=== PATIENT | female | born 1950 | race Caucasian/White ===

== ENCOUNTER 2016-11-03 19:45 | Emergency (ER) | payer OTHER ==
[~2016-11-03 19:45] MED LIST: ASAB PO; AUG875 PO; CIP5 PO; CRESTOR20 MG PO; DIOV80 PO; FLAG500TAB PO; HUMULIN R1 ML SC; L20 PO; L40 PO; LANTUS SC; NEUR100 PO; NEUR300 PO; NOVOLOG SC; PCET PO; POTASSIUM OTC PO; PRILO PO; PRILOSEC40 MG PO; PROTONIX PO; VENTOLIN HFA PO; VICTOZA18 MG/3 ML SC; Z100 PO; ZYRTEC ALLGY10 MG PO
[2017-03-04] MEDS ORDERED: MICROZIDE PO (19:35)
[2017-03-04] MEDS ORDERED: CRESTOR20 MG PO (19:35)
[2017-03-04] MEDS ORDERED: KDUR20 PO (19:35)
[2017-03-04] MEDS ORDERED: REQUIP5 PO (19:35)
[2017-03-04] MEDS ORDERED: NEUR300 PO ×2 (19:36)
[2017-03-04] MEDS ORDERED: ZYRTEC ALLGY10 MG PO (19:36)
[2017-03-04] MEDS ORDERED: VITAMIN D400 UNI1 PO (19:37)
[2017-03-04] MEDS ORDERED: CALTRA600D PO (19:38)
[2017-03-09] MEDS ORDERED: PR25 PO (09:08)
[2017-03-09] MEDS ORDERED: ASABAYER PO (09:08)
[2017-03-09] MEDS ORDERED: NORCO1 TAB PO (09:09)
[2017-03-09] MEDS ORDERED: LEVAQUIN750 MG PO (09:09)
== END 2016-11-03 20:12 | disposition home or self-care (01) ==
LOC: ER 19:45
PROC: 2W3SXYZ Immobilization of Right Foot using Other Device (ICD-10-PCS; principal; 2016-11-03)
DX: S82.434A Nondisplaced oblique fracture of shaft of right fibula, initial encounter for closed fracture (principal); I10 Essential (primary) hypertension; E11.9 Type 2 diabetes mellitus without complications; E78.5 Hyperlipidemia, unspecified; Z87.891 Personal history of nicotine dependence; Z90.710 Acquired absence of both cervix and uterus; Z88.5 Allergy status to narcotic agent; Z79.4 Long term (current) use of insulin; Z79.899 Other long term (current) drug therapy; X50.1XXA Overexertion from prolonged static or awkward postures, initial encounter
CPT/HCPCS: 73610-RT; 82962; 99283